=== PATIENT | male | born 1945 | race Caucasian/White ===

== ENCOUNTER 2023-12-31 18:36 | Inpatient (IN) | payer OTHER ==
[~2023-12-31] VITALS: Ht 188 cm; Wt 84.1 kg
[2023-12-31] MEDS ORDERED: ACETAMINOPHEN 325 MG TAB PO PRN (21:15)
[2023-12-31] MEDS ORDERED: ONDANSETRON HCL 4 MG/2 ML VIAL IV PRN (21:15)
[2023-12-31] MEDS ORDERED: NITROGLYCERIN 0.4 MG SL TAB SL PRN (21:15)
[2023-12-31] MEDS ORDERED: HYDROcodone-ACET 5/325MG TAB PO PRN (21:15)
[2023-12-31] MEDS ORDERED: MORPHINE SULFATE INJ 2 MG/ml SYRG IV PRN (21:15)
[2023-12-31 23:54] VITALS: BP 139/75; PULSE 55; PULSE 62; RESP 20; TEMP 97.4; O2SAT 98
[2024-01-01] VITALS (8 sets, daily range): BP systolic 120–147; BP diastolic 65–75; PULSE 61–66; RESP 15–20; TEMP 97.6–98; O2SAT 94–98
[2024-01-01] MEDS ORDERED: ONDANSETRON HCL 4 MG/2 ML VIAL IV PRN (01:15)
[2024-01-01 01:17] LABS: Basophils # (auto) 0.1 10 ^3/uL (0-0.2); Basophils % (auto) 0.6 % (0.0-2.0); Eosinophils # (auto) 0.3 10 ^3/uL (0-0.8); Eosinophils % (auto) 2.7 % (0.0-7.0); Hemoglobin 15.8 g/dL (13.5-17.5); Lymphocytes # (auto) 2.7 10 ^3/uL (0.4-5.4); Lymphocytes % (auto) 24.6 % (10.0-50.0); Mean Corpuscular Hemoglobin 30.6 pg (28.0-32.0); Mean Corpuscular Hgb Conc. 35.1 g/dL (32.0-36.0); Mean Corpuscular Volume 87.3 fL (80.0-100.0); Monocytes % (auto) 9.3 % (0.0-12.0); Neutrophils # (auto) 6.8 10 ^3/uL (1.6-8.6); Neutrophils % (auto) 62.8 % (37.0-80.0); Nucleated Red Blood Cells % 0.1 %; Platelet Count (auto) 259 10^3/uL (140-450); Red Blood Cells 5.15 10^6/uL (4.5-5.90); Red Cell Distribution Width 13.1 % (11.8-14.3); White Blood Cell 10.8 10^3/uL (4.4-10.8)
[2024-01-01 01:31] LABS: INR 1.03 (0.9-1.15); Prothrombin Time 10.9 sec (9.3-11.8)
[2024-01-01 01:32] LABS: Chloride 106 mmol/L (98-107); Potassium 4.3 mmol/L (3.5-5.1); Sodium 139 mmol/L (136-145)
[2024-01-01 01:33] LABS: Anion Gap 6 (5-15); Calcium 9.2 mg/dL (8.7-10.4); Carbon Dioxide 27 mmol/L (20-30)
[2024-01-01 01:38] LABS: BUN/Creatinine Ratio 18.4 (10.0-20.0); Blood Urea Nitrogen 19 mg/dL (9-23); Glucose 96 mg/dL (74-106)
[2024-01-01] MEDS ORDERED: ASPI325T6 PO (08:19)
[2024-01-01] MEDS ORDERED: MET25T PO (08:19)
[2024-01-01] MEDS ORDERED: NITR0.4S29 SL (08:19)
[2024-01-01] MEDS ORDERED: ATEN-60 PO (08:19)
[2024-01-01] MEDS: FAMOTIDINE 20 MG TAB PO SCH (10:33)
[2024-01-01] MEDS: ASPirin 81 mg TAB PO SCH (10:33)
[2024-01-01] MEDS: ENOXAPARIN SOD 40 MG/0.4 ML SYRINGE SC SCH (10:34)
[2024-01-01] MEDS: ATORVASTATIN 20 MG TAB PO SCH (22:01)
[2024-01-02] VITALS (15 sets, daily range): BP systolic 107–145; BP diastolic 66–84; PULSE 58–85; RESP 11–18; TEMP 97.6–98.2; O2SAT 93–100
[2024-01-02] MEDS: LIDOCAINE 1% HCL (LOCAL ANESTH.) INJ 20ML MDV ONE (08:25)
[2024-01-02] MEDS: HEPARIN IN NS 1000Units/500mL 1,500 ML ONE (08:26)
[2024-01-02] MEDS: IODIXANOL 320MG/ML 100ML BTL IV ONE ×4 (08:26→11:27)
[2024-01-02] MEDS: LIDOCAINE 2%HCL (LOCAL ANESTH.) INJ 20ML MDV ONE (10:37)
[2024-01-02] MEDS: ANGIOMAX 250 MG VIAL IV ONE (10:41)
[2024-01-02] MEDS: HEPARIN SODIUM (PORCINE) 5000 UNITS/ML 1ML VIAL ONE (10:41)
[2024-01-02] MEDS: VERAPAMIL 2.5MG/ML INJ 2ML VIAL IV ONE (10:41)
[2024-01-02] MEDS: fentaNYL CITRATE 100 MCG/2 ML VL ONE (10:41)
[2024-01-02] MEDS: MIDAZOLAM HCL 2MG/2ML 2ml VIAL (1mg/ml) ONE (10:42)
[2024-01-02] MEDS: SODIUM CHL 0.9% 50 ML ONE (10:42)
[2024-01-02] MEDS: ATROPINE SULF 1 MG/10ml SYR ONE (11:17)
[2024-01-02] MEDS: ASPirin 81 mg TAB ONE (11:48)
[2024-01-02] MEDS: TICAGRELOR 90 MG TAB ONE (12:02)
[2024-01-02] MEDS ORDERED: TICA90TA PO (17:19)
[2024-01-02] MEDS ORDERED: ASPI81TA28 PO (17:19)
[2024-01-02] MEDS ORDERED: ATOR20TA50 PO (17:19)
[2024-01-02] MEDS: TICAGRELOR 90 MG TAB PO SCH (21:32)
[2024-01-03 01:00] VITALS: BP 107/65; PULSE 76; RESP 17; TEMP 98.2; O2SAT 96
[2024-01-03 05:00] VITALS: BP 121/70; PULSE 66; RESP 14; TEMP 97.8; O2SAT 93
[2024-01-03 08:00] VITALS: PULSE 73; RESP 16; O2SAT 96
[2024-01-03 08:55] VITALS: BP 90/57; PULSE 90; RESP 15; TEMP 97.4; O2SAT 96
[2024-01-03 12:31] VITALS: BP 136/83; PULSE 72; RESP 19; TEMP 98.4; O2SAT 97
== END 2024-01-03 13:30 | disposition home or self-care (01) | DRG 322 ==
LOC: TELE-CENTR 22:45 → OBSVTOIN 01-01 09:19
PROVIDERS: ADMIT Nurse Practitioner Family; ATTEND Nurse Practitioner Family
PROC: 027135Z Dilation of Coronary Artery, Two Arteries with Two Drug-eluting Intraluminal Devices, Percutaneous Approach (ICD-10-PCS; principal; 2024-01-02)
PROC: 4A033BC Measurement of Arterial Pressure, Coronary, Percutaneous Approach (ICD-10-PCS; 2024-01-02)
PROC: 4A023N7 Measurement of Cardiac Sampling and Pressure, Left Heart, Percutaneous Approach (ICD-10-PCS; 2024-01-02)
PROC: B211YZZ Fluoroscopy of Multiple Coronary Arteries using Other Contrast (ICD-10-PCS; 2024-01-02)
PROC: B215YZZ Fluoroscopy of Left Heart using Other Contrast (ICD-10-PCS; 2024-01-02)
PROC: B240ZZ3 Ultrasonography of Single Coronary Artery, Intravascular (ICD-10-PCS; 2024-01-02)
DX: I25.119 Atherosclerotic heart disease of native coronary artery with unspecified angina pectoris (principal); I10 Essential (primary) hypertension; Z80.42 Family history of malignant neoplasm of prostate; Z87.891 Personal history of nicotine dependence
CPT/HCPCS: 36415; 71045; 80048; 84484; 85025; 85610; 86850; 86900; 86901; 87081; 87086; 92928; 92929; 92978; 93005; 93306; 93458; 93571; 99152; C1874; G0378; J2001; J2250; Q9967